=== PATIENT | female | born 1995 | race Caucasian/White ===

== ENCOUNTER → 2021-12-23 08:53 | Outpatient (BNVA) | payer MEDICAID, SELFPAY | PROVIDERS: Visit Provider Obstetrics & Gynecology | DX: O20.9 Hemorrhage in early pregnancy, unspecified (principal); Z3A.00 Weeks of gestation of pregnancy not specified | CPT/HCPCS: 84702 ==

== ENCOUNTER 2022-01-11 15:09 | Outpatient (CLI) | payer MEDICAID, SELFPAY | END 2022-01-11 15:10 | disposition home or self-care (01) | LOC: LAB 15:16 | PROVIDERS: Visit Provider Obstetrics & Gynecology | DX: Z34.90 Encounter for supervision of normal pregnancy, unspecified, unspecified trimester (principal) | CPT/HCPCS: 80307; 81000; 87086 ==